=== PATIENT | female | born 1995 | race Caucasian/White ===

== ENCOUNTER → 2024-02-17 07:47 | Outpatient (REF) | payer OTHER, SELFPAY | LOC: PNTC 07:47 | PROVIDERS: ATTENDING PHYSICIAN Nurse Practitioner Family | DX: Z34.90 Encounter for supervision of normal pregnancy, unspecified, unspecified trimester (principal) | CPT/HCPCS: 76801; 76817 ==

== ENCOUNTER → 2024-03-01 07:48 | Outpatient (REF) | payer OTHER, SELFPAY | LOC: PNTC 07:48 | PROVIDERS: ATTENDING PHYSICIAN Obstetrics & Gynecology | DX: O36.80X0 Pregnancy with inconclusive fetal viability, not applicable or unspecified (principal); O26.859 Spotting complicating pregnancy, unspecified trimester | CPT/HCPCS: 76817 ==

== ENCOUNTER → 2024-03-10 09:08 | Outpatient (REF) | payer OTHER, SELFPAY | LOC: RAD 09:08 | PROVIDERS: ATTENDING PHYSICIAN Obstetrics & Gynecology; FAMILY PHYSICIAN Family Medicine | DX: N91.2 Amenorrhea, unspecified (principal) | CPT/HCPCS: 76830; 76856 ==

== ENCOUNTER → 2024-09-15 13:42 | Outpatient (REF) | payer OTHER, SELFPAY | LOC: RAD 13:42 | PROVIDERS: ATTENDING PHYSICIAN Obstetrics & Gynecology; FAMILY PHYSICIAN Family Medicine | DX: O26.859 Spotting complicating pregnancy, unspecified trimester (principal) | CPT/HCPCS: 76801; 76817 ==

== ENCOUNTER → 2024-12-01 11:11 | Outpatient (REF) | payer OTHER, SELFPAY | LOC: RAD 11:11 | PROVIDERS: ATTENDING PHYSICIAN Student in an Organized Health Care Education/Training Program; FAMILY PHYSICIAN Family Medicine | DX: N96 Recurrent pregnancy loss (principal) | CPT/HCPCS: 58340; 74740; 76830 ==